=== PATIENT | male | born 1965 | race Caucasian/White ===

== ENCOUNTER 2020-01-26 15:14 | Emergency (ER) | payer SELFPAY ==
[~2020-01-26] VITALS: Ht 170.2 cm; Wt 83.9 kg
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
[2020-01-26] MEDS ORDERED: LIDOCAINE HCL/MPF 1% 30 ML VIAL IJ ONE (16:32)
[2020-01-26] MEDS ORDERED: TDAP [DIPH/PERTUSSIS/TET] 0.5 ML VIAL IM ONE (17:32)
--- NOTE | 2020-01-26 17:33 | NUR ---
CURRENTLY BY BEDSIDE. PROVIDING TX TO PTS L THUMB WOUND.
[2020-01-26] MEDS: TDAP [DIPH/PERTUSSIS/TET] 0.5 ML VIAL IM ONE (18:12)
--- NOTE | 2020-01-26 18:15 | NUR ---
LEFT PTS ROOM, S/P L THUMB NAIL AVULSION WITH SUTURING,.
[2020-01-26] MEDS ORDERED: CEPHALEXIN MONOHYDRATE 500 MG CAPSULE PO ONE (18:28)
[2020-01-26] MEDS ORDERED: GELATIN SPONGE,ABSORBABLE 1 SPONGE SPONGE TP ONE (18:29)
[2020-01-26] MEDS: CEPHALEXIN MONOHYDRATE 500 MG CAPSULE PO ONE (18:31)
--- NOTE | 2020-01-26 18:39 | NUR ---
MATERIAL COMBINER AT BEDSIDE FOR WOUND CARE
--- NOTE | 2020-01-26 18:57 | NUR ---
Patient discharged to home in stable condition. Written and verbal after care instructions given. Patient verbalizes understanding of instruction.
[2020-01-26 19:09] VITALS: BP 139/70
== END 2020-01-26 18:56 | disposition home or self-care (01) ==
LOC: ER 15:30
DX: S62.522A Displaced fracture of distal phalanx of left thumb, initial encounter for closed fracture (principal); E11.9 Type 2 diabetes mellitus without complications; I10 Essential (primary) hypertension; W26.8XXA Contact with other sharp object(s), not elsewhere classified, initial encounter; Y93.89 Activity, other specified; Y92.89 Other specified places as the place of occurrence of the external cause; Y99.0 Civilian activity done for income or pay
CPT/HCPCS: 12002; 73140; 90471; 90715; 99283; A6403 ×2; J3490